=== PATIENT | male | born 1995 | race Hispanic/Latino ===

== ENCOUNTER → 2018-03-17 | Outpatient (CLI) | payer BC ==
--- NOTE | 2018-03-17 09:24 | Diagnostic Imaging Report ---
PROCEDURE:US LIVER COMPARISON:None. INDICATIONS:ELEVATED LIVER ENZYMES TECHNIQUE: Flores-scale and color doppler transverse and longitudinal images of the right upper quadrant of the abdomen were obtained. FINDINGS: Liver: 13.9 cm in right mid-clavicular line. Increased parenchymal echogenicity. No masses. Main portal vein: 1.1 cm in caliber. Hepatopedal flow. Gallbladder: Unremarkable. No shadowing calculus, wall thickening, or pericholecystic fluid. Common Bile Duct: 0.4 cm in caliber. Sonographic Castanon's sign: Reported as negative. Right kidney: 9.9 cm. Normal renal cortical echogenicity. No solid masses or hydronephrosis. Pancreas: Poorly visualized secondary to overlying bowel gas. Inferior vena cava: Patent Aorta: Within normal limits Ascites: None in the right upper quadrant of the abdomen. CONCLUSION: Increased hepatic parenchymal echogenicity compatible with steatosis. Otherwise unremarkable right upper quadrant ultrasound. Dictated by: Kyler Hurley M.D. on 03/17/2018 at 9:27 Electronically approved by: Kyler Hurley M.D. on 03/17/2018 at 9:27
== END ==
LOC: US 08:24
PROVIDERS: ATTEND Family Medicine
DX: R74.8 Abnormal levels of other serum enzymes (principal)
CPT/HCPCS: 76705